=== PATIENT | female | born 2000 | race Caucasian/White ===

== ENCOUNTER 2022-08-22 16:29 | Emergency (ER) | payer OTHER, SELFPAY ==
[2022-08-22 16:36] VITALS: BP 158/92; PULSE 106; RESP 20; TEMP 36.7; O2SAT 100; BMI 31.6
--- NOTE | 2022-08-22 16:45 | DI.US.S_ITS ---
PROCEDURE: US OB <= 14 WEEKS FETUS INDICATIONS: PAIN OUTSIDE/PRIOR DATING DATA: Last menstrual period (LMP): 07/12/2022. LMP-based estimated date of delivery (BECKY): 04/18/2023. First dating scan (date and location): 08/22/2022 at . Estimated date of delivery (BECKY) from first dating scan: 04/19/2023. TECHNIQUE: Real-time scanning was performed of the fetus and maternal pelvic organs, with image documentation. Endovaginal scanning was also performed to better visualize the fetus and maternal ovaries. COMPARISON: None. FINDINGS: Embryo: There is a single living IUP with crown-rump length measuring 2 mm corresponding to gestational age 5 weeks 5 days. heart rate 101 BPM. Ultrasound BECKY 04/19/2023. A normal appearing yolk sac is visualized. Maternal organs: Ovaries are grossly normal. There is a corpus luteal cyst in right ovary. IMPRESSION: 1. A single living intrauterine gestation with an estimated gestational age of 5 weeks 5 days corresponding to ultrasound BECKY 04/19/2023. We strive to produce accurate, complete, and clear reports of imaging services. To assist us in improving patient care, this report was composed using standard report templates and voice recognition software. Therefore, it may contain abnormal punctuation, insertions and/or omissions. Occasional wrong-word or sound-alike substitutions may occur. Though we review the report and make efforts to correct it, we do recommend that the report be read carefully in proper context to recognize any text inaccuracies. Dictated by: John Gee M.D. on 08/22/2022 at 18:13 Approved by: John Gee M.D. on 08/22/2022 at 18:17
--- NOTE | 2022-08-22 17:04 | ED_ITS ---
HPI - Abdominal Pain <LONNIE Madden - Last Filed: 08/22/22 18:39> General Chief Complaint: Abdominal Pain Stated Complaint: Signs of Ectopic Time Seen by Provider: 08/22/22 16:45 Source: patient Mode of arrival: Ambulatory History of Present Illness HPI narrative: This is a 22-year-old female who is a and is approximately 6 weeks with last menstrual period July 12 through the and presents to the emergency department with right-sided pelvic pain for the last 1.5 weeks without vaginal bleeding, other pain, states that she had congestion and a headache with a cold approximately 5 days ago. She denies any dysuria, urinary frequency, abnormal vaginal discharge, fever, chills, nausea vomiting. She has not had an ultrasound yet, has not set up an OBGYN either. Review of Systems <LONNIE Madden - Last Filed: 08/22/22 18:39> Review of Systems Narrative: Review of systems is negative for acute abnormalities unless otherwise noted in HPI Exam <LONNIE Madden - Last Filed: 08/22/22 18:39> Narrative Exam Narrative: Reviewed vitals signs and nursing notes. General: cooperative, comfortable, in no acute distress, well groomed HEENT: symmetrical facial expressions, moist mucous membranes Cardiovascular: regular rate and rhythm, no peripheral edema, warm extremities Respiratory: normal effort, able to speak in complete sentences, without wheezing, stridor, or abnormal breath sounds. No retractions or tachypnea. GI: abdomen soft, nontender to palpation, nondistended, without masses, rebound tenderness or exquisite tenderness with exam. Mild tenderness over the right pelvic region MSK: moves all extremities, neurovascularly intact, no weakness, normal tone Skin: brisk capillary refill, without pallor or erythema Neuro: normal speech and cognition, A&O x3, ambulatory, clear speech Psych: mental status is grossly normal, congruent mood, normal affect, pleasant and cooperative Initial Vital Signs Initial Vital Signs: Vital Signs Temperature 98.1 F 08/22/22 16:36 Pulse Rate 106 H 08/22/22 16:36 Respiratory Rate 20 08/22/22 16:36 Blood Pressure 158/92 H 08/22/22 16:36 Pulse Oximetry 100 08/22/22 16:36 Oxygen Delivery Method 08/22/22 16:36 <Ayo Aguilar MD - Last Filed: 08/27/22 07:44> Initial Vital Signs Initial Vital Signs: Vital Signs Temperature 98.1 F 08/22/22 16:36 Pulse Rate 106 H 08/22/22 16:36 Respiratory Rate 20 08/22/22 16:36 Blood Pressure 158/92 H 08/22/22 16:36 Pulse Oximetry 100 08/22/22 16:36 Oxygen Delivery Method 08/22/22 16:36 Course <LONNIE Madden - Last Filed: 08/22/22 18:39> Orders Ordered: ED Orders 08/22/22 16:43 UA dip and micro [Urinalysis and Microscopic] Stat 08/22/22 16:45 US OB <= 14 weeks fetus Stat 08/22/22 17:06 CBC Auto Diff [Complete Blood Count AUTO DIFF] Stat CMP [Comprehensive Metabolic Panel] Stat HCG Quantitative /Beta subunit Stat 08/22/22 17:24 Covid-19 + FLU A/B + RSV - PCR Stat Vital Signs Vital signs: Vital Signs - 8 hr 08/22/22 16:36 Temperature 98.1 F Pulse Rate 106 H Respiratory Rate 20 Blood Pressure 158/92 H Pulse Oximetry 100 Oxygen Delivery Method Room Air <Ayo Aguilar MD - Last Filed: 08/27/22 07:44> Orders Ordered: ED Orders 08/22/22 16:43 UA dip and micro [Urinalysis and Microscopic] Stat 08/22/22 16:45 US OB <= 14 weeks fetus Stat 08/22/22 17:06 CBC Auto Diff [Complete Blood Count AUTO DIFF] Stat CMP [Comprehensive Metabolic Panel] Stat HCG Quantitative /Beta subunit Stat 08/22/22 17:24 Covid-19 + FLU A/B + RSV - PCR Stat Vital Signs Vital signs: Vital Signs - 8 hr 08/22/22 16:36 Temperature 98.1 F Pulse Rate 106 H Respiratory Rate 20 Blood Pressure 158/92 H Pulse Oximetry 100 Oxygen Delivery Method Room Air MDM - Abdominal Pain <LONNIE Madden - Last Filed: 08/22/22 18:39> Lab Data Result diagrams: 08/22/22 17:06 08/22/22 17:06 Labs: Lab Results 08/22/22 08/22/22 08/22/22 Range/Units 16:43 17:06 17:06 WBC 11.3 H (4.5-11.0) X10^3/uL RBC 4.63 (4.0-5.2) X10^6/uL Hgb 12.8 (12.0-16.0) g/dL Hct 37.8 (36-46) % MCV 81.6 (80-100) fL MCH 27.7 (26-34) PG MCHC 34.0 (30-36) % RDW 13.5 (11.6-14.8) % Plt Count 365 (150-400) X10^3/uL Neut % (Auto) 72.0 (50-75) % Lymph % (Auto) 19.7 L (25-40) % Dukes % (Auto) 5.7 (3-14) % Eos % (Auto) 1.5 L (2-4) % Baso % (Auto) 1.1 (0-2) % Neut # (Auto) 8200 H (4977-9224) /uL Lymph # (Auto) 2200 (8249-8761) /uL Dukes # (Auto) 600 (0-900) /uL Eos # (Auto) 200 (0-450) /uL Baso # (Auto) 100 (0-100) /uL Sodium 140 (137-145) mmol/L Potassium 3.7 (3.4-5.1) mmol/L Chloride 105 (98-107) mmol/L Carbon Dioxide 25 (22-32) mmol/L BUN 7 (7-17) mg/dL Creatinine 0.56 (0.52-1.04) mg/dL Estimated GFR > 60 (>60) mL/min BUN/Creatinine Ratio 12.5 (6-22) Glucose 97 (70-100) mg/dL Calcium 9.2 (8.4-10.2) mg/dL Total Bilirubin 0.3 (0.2-1.3) mg/dL AST 21 (14-36) IU/L ALT 23 (<35) IU/L Alkaline Phosphatase 87 (38-126) U/L Total Protein 7.8 (6.3-8.2) g/dL Albumin 4.2 (3.5-5.0) g/dL Globulin 3.6 (1.7-4.1) g/dL Albumin/Globulin Ratio 1.2 (1.0-2.8) HCG, Quant 01075 mIU/mL Urine Color Yellow Urine Appearance Clear Urine pH 7.0 (4.5-8.0) Ur Specific [place] <=1.005 (1.000-1.035) Urine Protein Negative (Negative) Urine Glucose (UA) Negative (Negative) g/dL Urine Ketones Negative (NEGATIVE) Urine Occult Blood Negative (Negative) Urine Nitrate Negative (Negative) Urine Bilirubin Negative (NEGATIVE) Urine Urobilinogen 0.2 (0.2) E.U./dL Ur Leukocyte Esterase Negative (NEGATIVE) Urine RBC None seen (0-5/HPF) Urine WBC 0-1/hpf (0-5/HPF) Ur Squamous Epith Cells 1-5 /hpf (0-5/HPF) Urine Bacteria None seen (None) Ur Culture Indicated? Cult not indicated Point of care testing: Point of Care Testing Test Results Positive Urine Dip Bedside Urine Glucose Negative Bedside Urine Bilirubin - Negative Bedside Urine Ketone - Negative Urine Specific [place] 1.015 Bedside Urine Occult Blood - Negative Bedside Urine pH 6.0 Bedside Urine Protein - Negative Bedside Urine Urobilinogen - Negative Bedside Urine Nitrite - Negative Bedside Urine Leukocytes - Negative Esterase Imaging Data US - OB: Radiologist's Impression: PROCEDURE:? US OB <= 14 WEEKS FETUS ? INDICATIONS:? PAIN ? OUTSIDE/PRIOR DATING DATA:? Last menstrual period (LMP):? 07/12/2022.? LMP-based estimated date of delivery (BECKY):? 04/18/2023.? First dating scan (date and location):? 08/22/2022? at .? Estimated date of delivery (BECKY) from first dating scan:? 04/19/2023. ? TECHNIQUE:? Real-time scanning was performed of the fetus and maternal pelvic organs, with image documentation.? Endovaginal scanning was also performed to better visualize the fetus and maternal ovaries.? ? COMPARISON:? None. ? FINDINGS:? ? Embryo:? There is a single living IUP with crown-rump length measuring 2 mm rose esponding to gestational age 5 weeks 5 days.? heart rate 101 BPM.? Ultrasound BECKY 04/19/2023.? A normal appearing yolk sac is visualized. ? Maternal organs:? Ovaries are grossly normal.? There is a corpus luteal cyst in right ovary. ? ? ? IMPRESSION:? ? 1. A single living intrauterine gestation with an estimated gestational age of 5 weeks 5 days corresponding to ultrasound BECKY 04/19/2023. ? ? ? We strive to produce accurate, complete, and clear reports of imaging services. To assist us in improving patient care, this report was composed using standard report templates and voice recognition software. Therefore, it may contain abnormal punctuation, insertions and/or omissions. Occasional wrong-word or sound-alike substitutions may occur. Though we review the report and make efforts to correct it, we do recommend that the report be read carefully in proper context to recognize any text inaccuracies. ? Dictated by: John Gee M.D. on 08/22/2022 at 18:13 ? ? Approved by: John Gee M.D. on 08/22/2022 at 18:17 ? MDM Narrative Medical decision making narrative: This is a 22-year-old female presents to the emergency department complaining of right pelvic pain, she is a and states that she is 6 weeks and has not had an ultrasound or an OBGYN appointment yet. She is not had any abnormal vaginal discharge, without bleeding or cramping, states that this right pelvic pain has been present for approximately 1.5 weeks and she does not have any other symptoms. Lab work shows a mild leukocytosis of 11.3, no anemia, electrolyte abnormalities, hCG is 13,484, UA is negative for infection. ultrasound shows a corpus luteal cyst on the right ovary, without ectopic bilaterally, shows a healthy, normal intrauterine . There is a single living IUP with crown-rump length measuring 2 mm corresponding to gestational age 5 weeks 5 days.? heart rate 101 BPM.? Ultrasound BECKY 04/19/2023.? A normal appearing yolk sac is visualized. She is given OBGYN contact information for follow-up appointment. Patient is appropriate and amenable to discharge home. Vital signs are stable on repeat examination is unremarkable. Patient has been informed of results. Patient has been given strict return to ER precautions for any new or worsening symptoms. Patient understands to follow up closely with outpatient providers as instructed. Patient understands plan and agrees to discharge home. All questions and concerns answered at this time. <Ayo Aguilar MD - Last Filed: 08/27/22 07:44> Lab Data Labs: Lab Results 08/22/22 08/22/22 08/22/22 Range/Units 16:43 17:06 17:06 WBC 11.3 H (4.5-11.0) X10^3/uL RBC 4.63 (4.0-5.2) X10^6/uL Hgb 12.8 (12.0-16.0) g/dL Hct 37.8 (36-46) % MCV 81.6 (80-100) fL MCH 27.7 (26-34) PG MCHC 34.0 (30-36) % RDW 13.5 (11.6-14.8) % Plt Count 365 (150-400) X10^3/uL Neut % (Auto) 72.0 (50-75) % Lymph % (Auto) 19.7 L (25-40) % Dukes % (Auto) 5.7 (3-14) % Eos % (Auto) 1.5 L (2-4) % Baso % (Auto) 1.1 (0-2) % Neut # (Auto) 8200 H (1969-0660) /uL Lymph # (Auto) 2200 (7021-1880) /uL Dukes # (Auto) 600 (0-900) /uL Eos # (Auto) 200 (0-450) /uL Baso # (Auto) 100 (0-100) /uL Sodium 140 (137-145) mmol/L Potassium 3.7 (3.4-5.1) mmol/L Chloride 105 (98-107) mmol/L Carbon Dioxide 25 (22-32) mmol/L BUN 7 (7-17) mg/dL Creatinine 0.56 (0.52-1.04) mg/dL Estimated GFR > 60 (>60) mL/min BUN/Creatinine Ratio 12.5 (6-22) Glucose 97 (70-100) mg/dL Calcium 9.2 (8.4-10.2) mg/dL Total Bilirubin 0.3 (0.2-1.3) mg/dL AST 21 (14-36) IU/L ALT 23 (<35) IU/L Alkaline Phosphatase 87 (38-126) U/L Total Protein 7.8 (6.3-8.2) g/dL Albumin 4.2 (3.5-5.0) g/dL Globulin 3.6 (1.7-4.1) g/dL Albumin/Globulin Ratio 1.2 (1.0-2.8) HCG, Quant 19665 mIU/mL Urine Color Yellow Urine Appearance Clear Urine pH 7.0 (4.5-8.0) Ur Specific [place] <=1.005 (1.000-1.035) Urine Protein Negative (Negative) Urine Glucose (UA) Negative (Negative) g/dL Urine Ketones Negative (NEGATIVE) Urine Occult Blood Negative (Negative) Urine Nitrate Negative (Negative) Urine Bilirubin Negative (NEGATIVE) Urine Urobilinogen 0.2 (0.2) E.U./dL Ur Leukocyte Esterase Negative (NEGATIVE) Urine RBC None seen (0-5/HPF) Urine WBC 0-1/hpf (0-5/HPF) Ur Squamous Epith Cells 1-5 /hpf (0-5/HPF) Urine Bacteria None seen (None) Ur Culture Indicated? Cult not indicated Point of care testing: Point of Care Testing Test Results Positive Urine Dip Bedside Urine Glucose Negative Bedside Urine Bilirubin - Negative Bedside Urine Ketone - Negative Urine Specific [place] 1.015 Bedside Urine Occult Blood - Negative Bedside Urine pH 6.0 Bedside Urine Protein - Negative Bedside Urine Urobilinogen - Negative Bedside Urine Nitrite - Negative Bedside Urine Leukocytes - Negative Esterase Discharge Plan Departure Patient Disposition: Home Clinical Impression: Intrauterine normal Qualifiers: Trimester: first trimester Qualified Code(s): Z34.91 - Encounter for supervision of normal , unspecified, first trimester Instructions: DI for Ovarian Cyst Activity Restrictions/Additional Instructions: *You have been diagnosed with a healthy intrauterine . A right-sided corpus luteal cyst, this is normal to be mildly tender, worse if your constipat ed. Congratulations on your , I hope this is very exciting for you guys. comes with lot of new things, I am sorry that we went to worst case 1st case today but I am glad to tell you that you have a healthy . Please establish care with an OBGYN, we have multiple OBGYN here at this [facility] [place], Dr. Galdamez is currently the OBGYN on-call. A pendant his information, you can call and set up a follow-up appointment with OBGYN and see any of the providers that you wish. Please stay hydrated, return to the emergency department if you have any worsening of your symptoms. This is not an ectopic . Your hCG today was [id number]. In case this comes up and you need to kn ow what this was. *What to do: *Please continue to take your regular medications as directed. [ ] New medication prescriptions sent to your pharmacy: [ ] [ ] New medication written as a paper prescription [x ] No new medications given *Please follow up with your primary care provider in 2-3 days, call for an appointment. Let them know you were seen in the Emergency Department and that we asked that you be seen for follow-up. We will electronically transmit a record of today's note if your PCP is in our system *If you do not have a primary care provider please contact [phone] to establish care with one of the [facility] primary care providers. *Return to Emergency Department if you should have any new, worsening, or concerning symptoms, such as [fever greater than 101F, chills, worsening pain, persistent vomiting or other bothersome symptoms]. Referrals: Miscellaneous,MD Priti [Primary Care Provider] - Lemuel Galdamez MD [Physician] - Visit Report Forms: Patient Portal/API <Ayo Aguilar MD - Last Filed: 08/27/22 07:44> Cosign ED Attending Cosdenisseature Attestation: I was immediately available in the department for consultation. ?This documentation has been reviewed and I agree with assessment and plan. Supervised by Ayo Aguilar MD
[2022-08-22 17:06] LABS: Appearance Urine UA CLEAR; Bilirubin Urine UA NEGATIVE (NEGATIVE); Color Urine UA YELLOW; Glucose Urine UA NEGATIVE (Negative); Ketones Urine UA NEGATIVE (NEGATIVE); Leukocyte Esterase Urine UA NEGATIVE (NEGATIVE); Nitrite Urine UA NEGATIVE (Negative); Occult Blood Urine UA NEGATIVE (Negative); Protein Urine UA NEGATIVE (Negative); Specific Gravity Urine UA <=1.005 (1.000-1.035); Urobilinogen Urine UA 0.2 E.U./dL (0.2)
[2022-08-22 17:14] LABS: Bacteria Urine None Seen; Culture Indicated Urine Cult Not Indicated; RBC Urine None Seen (0-5/HPF); Squamous Epithelial Cell Urine 1-5 /HPF (0-5/HPF); WBC Urine 0-1/HPF (0-5/HPF)
[2022-08-22 17:16] LABS: Add Manual Diff / Slide Review NO; Basophils Absolute Auto 100 /uL (0-100); Basophils Percent Auto 1.1 % (0-2); Eosinophils Absolute Auto 200 /uL (0-450); Eosinophils Percent Auto 1.5 % (2-4); Hematocrit 37.8 % (36-46); Hemoglobin 12.8 g/dL (12.0-16.0); Lymphocytes Absolute Auto 2200 /uL (1100-4500); Lymphocytes Percent Auto 19.7 % (25-40); Mean Corpuscular Hemoglobin 27.7 PG (26-34); Mean Corpuscular Volume 81.6 fL (80-100); Monocytes Absolute Auto 600 /uL (0-900); Monocytes Percent Auto 5.7 % (3-14); Neutrophils Absolute Auto 8200 /uL (1500-7000); Platelet Count 365 X10^3/uL (150-400); Red Blood Cell Count 4.63 X10^6/uL (4.0-5.2); Red Cell Distribution Width 13.5 % (11.6-14.8); White Blood Cell Count 11.3 X10^3/uL (4.5-11.0)
[2022-08-22 17:26] LABS: Alanine Aminotransferase 23 IU/L (<35); Albumin 4.2 g/dL (3.5-5.0); Albumin Globulin Ratio 1.2 (1.0-2.8); Alkaline Phosphatase 87 U/L (38-126); Aspartate Aminotransferase 21 IU/L (14-36); BUN Creatinine Ratio 12.5 (6-22); Bilirubin Total 0.3 mg/dL (0.2-1.3); Blood Urea Nitrogen 7 mg/dL (7-17); Calcium 9.2 mg/dL (8.4-10.2); Carbon Dioxide 25 mmol/L (22-32); Chloride 105 mmol/L (98-107); Estimated Glomerular Filt Rate > 60 mL/min (>60); Globulin 3.6 g/dL (1.7-4.1); Glucose 97 mg/dL (70-100); HEMOLYSIS < 15 (0-50); Potassium 3.7 mmol/L (3.4-5.1); Sodium 140 mmol/L (137-145); Total Protein 7.8 g/dL (6.3-8.2)
[2022-08-22 18:08] LABS: HCG Quantitative /Beta subunit 13484 mIU/mL
[2022-08-22 19:04] VITALS: BP 150/82
== END 2022-08-22 19:05 | disposition home or self-care (01) ==
PROVIDERS: Emergency Provider Nurse Practitioner Critical Care Medicine
DX: O20.9 Hemorrhage in early pregnancy, unspecified (principal); R10.2 Pelvic and perineal pain; Z3A.01 Less than 8 weeks gestation of pregnancy
CPT/HCPCS: 36415; 76801; 76817; 80053; 81001; 81003; 81025; 84702; 85025; 99282; 99284